=== PATIENT | female | born 1955 | race Hispanic/Latino ===

== ENCOUNTER → 2017-07-23 | Outpatient (CLI) | payer MEDICARE ==
[~2017-07-23] MED LIST: AEC81 PO; ASPI-1197 PO; BECLOMETHASONE PO; CHOL500050 PO; ISOS30TA6 PO; LINA145C PO; METF10004 PO; METF500T6 PO; MONT10TA24 PO; PANT40TA25 PO; PIOG30TA70 PO; PREG100C PO; PREG150C PO; PROAIR IH; RANO500T3 PO; REGADENOSON 0.4 MG/5 ML PF SYG IVP SCH; [UNRECOGNIZED DRUG - OTHER] PUFF
== END | disposition home or self-care (01) ==
LOC: SHCH 09:47
PROVIDERS: ATTEND Internal Medicine Cardiovascular Disease
DX: I20.9 Angina pectoris, unspecified (principal); R06.00 Dyspnea, unspecified; R51 Headache; R11.0 Nausea
CPT/HCPCS: 78452; 93017; 96374; A9500 ×2; J2785

== ENCOUNTER 2017-09-20 05:32 | Day surgery (SDC) | payer MEDICARE ==
[2017-09-16 11:49] VITALS: BP 116/56
[2017-09-16 12:02] LABS: BASOPHILS % (AUTO) 1.9 % (0.0-5.0); EOSINOPHILS % (AUTO) 8.1 % (0.0-8.0); HEMATOCRIT 32.7 % (36-48); LYMPHOCYTES % (AUTO) 21.6 % (21.0-51.0); MEAN CORPUSCULAR HEMOGLOBIN 28.2 pg (27.0-33.0); MEAN CORPUSCULAR HGB CONC 34.1 g/dL (32.0-36.0); MEAN CORPUSCULAR VOLUME 82.5 fL (79-99); MONOCYTES % (AUTO) 7.8 % (3.0-13.0); NEUTROPHILS % (AUTO) 60.6 % (40.0-77.0); NUCLEATED RED BLOOD CELLS 0.1 % (0.0-0.19); PLATELET COUNT (AUTO) 125 K/uL (130-400); RED BLOOD CELL COUNT(AUTO) 3.96 MIL/uL (4.00-5.50); RED CELL DISTRIBUTION WIDTH 15.1 % (11.0-15.5); WHITE BLOOD COUNT (AUTO) 4.3 K/uL (4.8-10.8)
[2017-09-16 12:03] LABS: APPEARANCE,URINE Cloudy (CLEAR); BILIRUBIN,URINE Negative (NEGATIVE); COLOR,URINE Dark Yellow (YELLOW); GLUCOSE, URINE (UA) Negative (NEGATIVE); KETONES,URINE 15 mg/dL (NEGATIVE); LEUKOCYTE ESTERASE ,URINE Negative (NEGATIVE); NITRATE,URINE Negative (NEGATIVE); OCCULT BLOOD,URINE Negative (NEGATIVE); PROTEIN,URINE POS 2+ (NEGATIVE)
[2017-09-16 12:08] LABS: POTASSIUM 4.6 mmol/L (3.5-5.1)
[2017-09-16 12:34] LABS: INR 0.99 (0.85-1.15); PARTIAL THROMBOPLASTIN TIME 28.2 SEC (26.3-35.5); PROTHROMBIN TIME 10.4 SEC (9.6-11.6)
[2017-09-16 12:37] LABS: BACTERIA,URINE Few /HPF (None Seen); MUCUS,URINE Rare LPF (None Seen); SQUAMOUS EPITHELIAL CELL,UR Rare /HPF (0-2); WBC,URINE 0-1 /HPF (0-1)
[~2017-09-20] VITALS: Ht 157.5 cm; Wt 69.0 kg
[2017-09-20] VITALS (9 sets, daily range): BP systolic 113–127; BP diastolic 49–58
[~2017-09-20 05:32] MED LIST changes: -AEC81 PO; -BECLOMETHASONE PO; -LINA145C PO; -METF500T6 PO; -PANT40TA25 PO; -PREG100C PO; -REGADENOSON 0.4 MG/5 ML PF SYG IVP SCH; -[UNRECOGNIZED DRUG - OTHER] PUFF
[2017-09-20] MEDS ORDERED: SODIUM CHLORIDE 0.9% 1000ML 1,000 ML IV ONE (06:29)
[2017-09-20] MEDS ORDERED: LINA145C PO (07:47)
[2017-09-20] MEDS ORDERED: [UNRECOGNIZED DRUG - OTHER] PUFF (07:47)
[2017-09-20] MEDS ORDERED: ISOVUE-370 50ML VIAL IV ONE (09:05)
[2017-09-20] MEDS ORDERED: NITROGLYCERIN 5 MG/ML 10 ML VIAL IV ONE (09:05)
[2017-09-20] MEDS ORDERED: HEPARIN SODIUM 1000UNIT/ML 10ML VIAL ONE (09:05)
[2017-09-20] MEDS ORDERED: IOPAMIDOL-370 75 ML VIAL IV ONE (09:05)
[2017-09-20] MEDS ORDERED: LIDOCAINE HCL 2% 20ML ONE (09:05)
[2017-09-20] MEDS ORDERED: MIDAZOLAM HCL 1 MG/ML 2ML VIAL ONE (09:37)
[2017-09-20] MEDS ORDERED: FENTANYL CITRATE PF 50 MCG/1 ML 2ML VIAL ONE (09:37)
[2017-09-20] MEDS ORDERED: SODIUM CHLORIDE 0.9% 1000ML 1,000 ML IV SCH (10:02)
[2017-09-20] MEDS ORDERED: HYDRALAZINE HCL 20 MG/ML VIAL IV PRN (10:15)
[2017-09-20] MEDS ORDERED: NITROGLYCERIN 0.4 MG SL TAB SL PRN (10:15)
[2017-09-20] MEDS ORDERED: GLUCAGON 1MG KIT 1 MG ML IM PRN (10:15)
[2017-09-20] MEDS ORDERED: DEXTROSE 50%-WATER 50 ML DISP.SYRIN IV PRN (10:15)
[2017-09-20] MEDS ORDERED: INSULIN HUMULIN R 100 UNIT/ML 3ML SQ SCH (11:30)
== END 2017-09-20 13:40 | disposition home or self-care (01) ==
LOC: DAH 05:32
PROVIDERS: ATTEND Internal Medicine Cardiovascular Disease
DX: I25.10 Atherosclerotic heart disease of native coronary artery without angina pectoris (principal); K21.9 Gastro-esophageal reflux disease without esophagitis; E11.40 Type 2 diabetes mellitus with diabetic neuropathy, unspecified; M19.90 Unspecified osteoarthritis, unspecified site; E78.5 Hyperlipidemia, unspecified; Z79.82 Long term (current) use of aspirin; Z79.84 Long term (current) use of oral hypoglycemic drugs; Z86.718 Personal history of other venous thrombosis and embolism; Z95.1 Presence of aortocoronary bypass graft; Z90.49 Acquired absence of other specified parts of digestive tract; Z90.710 Acquired absence of both cervix and uterus; Z98.890 Other specified postprocedural states; Z83.3 Family history of diabetes mellitus
CPT/HCPCS: 36415; 71045; 80048; 81001; 82948 ×2; 85025; 85610; 85730; 93005; 93459; 99156; 99157; A4606; C1760; C1894 ×2; J1644; J2250; J3010; J3490 ×2; J7030; Q9967 ×2

== ENCOUNTER → 2017-11-30 | Outpatient (CLI) | payer MEDICARE ==
[~2017-11-30] VITALS: Ht 157.5 cm; Wt 71.2 kg
[~2017-11-30] MED LIST changes: +AEC81 PO; +CEFAZOLIN SODIUM 1 GM VIAL IVP SCH; +CILO100T PO; +CLOP75TA32 PO; +LINA145C PO; +METF-446 PO; -METF10004 PO; +TYL3 PO; +[UNRECOGNIZED DRUG - OTHER] PUFF
[2017-11-30 11:05] VITALS: BP 133/62
[2017-11-30 11:13] LABS: BASOPHILS % (AUTO) 1.7 % (0.0-5.0); EOSINOPHILS % (AUTO) 6.9 % (0.0-8.0); HEMATOCRIT 32.6 % (36-48); LYMPHOCYTES % (AUTO) 23.6 % (21.0-51.0); MEAN CORPUSCULAR HEMOGLOBIN 27.5 pg (27.0-33.0); MEAN CORPUSCULAR HGB CONC 33.3 g/dL (32.0-36.0); MEAN CORPUSCULAR VOLUME 82.5 fL (79-99); MONOCYTES % (AUTO) 7.3 % (3.0-13.0); NEUTROPHILS % (AUTO) 60.5 % (40.0-77.0); PLATELET COUNT (AUTO) 101 K/uL (130-400); RED BLOOD CELL COUNT(AUTO) 3.95 MIL/uL (4.00-5.50); RED CELL DISTRIBUTION WIDTH 14.8 % (11.0-15.5); WHITE BLOOD COUNT (AUTO) 3.9 K/uL (4.8-10.8)
[2017-11-30 11:17] LABS: POTASSIUM 4.7 mmol/L (3.5-5.1)
[2017-11-30 11:49] LABS: INR 1.02 (0.85-1.15); PARTIAL THROMBOPLASTIN TIME 30.3 SEC (26.3-35.5); PROTHROMBIN TIME 10.7 SEC (9.6-11.6)
== END ==
LOC: DAH 10:00 → EDSTATUS 10:00
PROVIDERS: ATTEND Internal Medicine Cardiovascular Disease
DX: I49.5 Sick sinus syndrome (principal); Z53.9 Procedure and treatment not carried out, unspecified reason; Z95.1 Presence of aortocoronary bypass graft; Z90.49 Acquired absence of other specified parts of digestive tract; Z90.710 Acquired absence of both cervix and uterus; Z98.890 Other specified postprocedural states; Z82.49 Family history of ischemic heart disease and other diseases of the circulatory system; Z83.3 Family history of diabetes mellitus; D64.9 Anemia, unspecified; M19.90 Unspecified osteoarthritis, unspecified site; D69.6 Thrombocytopenia, unspecified; E11.40 Type 2 diabetes mellitus with diabetic neuropathy, unspecified; Z68.30 Body mass index [BMI] 30.0-30.9, adult; J44.9 Chronic obstructive pulmonary disease, unspecified; I25.119 Atherosclerotic heart disease of native coronary artery with unspecified angina pectoris
CPT/HCPCS: 36415; 80048; 85025; 85610; 85730

== ENCOUNTER 2017-12-17 05:37 | Observation (INO) | payer MEDICARE ==
[2017-12-15 10:30] VITALS: BP 137/64
[2017-12-15 10:33] LABS: BASOPHILS % (AUTO) 2.4 % (0.0-5.0); EOSINOPHILS % (AUTO) 6.8 % (0.0-8.0); HEMATOCRIT 31.4 % (36-48); LYMPHOCYTES % (AUTO) 27.1 % (21.0-51.0); MEAN CORPUSCULAR HEMOGLOBIN 27.9 pg (27.0-33.0); MEAN CORPUSCULAR HGB CONC 33.9 g/dL (32.0-36.0); MEAN CORPUSCULAR VOLUME 82.2 fL (79-99); MONOCYTES % (AUTO) 7.7 % (3.0-13.0); NUCLEATED RED BLOOD CELLS 0.1 % (0.0-0.19); PLATELET COUNT (AUTO) 111 K/uL (130-400); RED BLOOD CELL COUNT(AUTO) 3.83 MIL/uL (4.00-5.50); RED CELL DISTRIBUTION WIDTH 14.7 % (11.0-15.5); WHITE BLOOD COUNT (AUTO) 3.8 K/uL (4.8-10.8)
[2017-12-15 10:41] LABS: POTASSIUM 4.6 mmol/L (3.5-5.1)
[2017-12-15 10:45] LABS: INR 1.02 (0.85-1.15); PARTIAL THROMBOPLASTIN TIME 30.9 SEC (26.3-35.5); PROTHROMBIN TIME 10.7 SEC (9.6-11.6)
[~2017-12-17] VITALS: Ht 157.5 cm; Wt 67.2 kg
[2017-12-17] VITALS (19 sets, daily range): BP systolic 112–133; BP diastolic 46–79
[2017-12-17] MEDS: CEFAZOLIN SODIUM 1 GM VIAL IVP SCH ×2 (05:00→20:55)
[~2017-12-17 05:37] MED LIST changes: -ASPI-1197 PO; -CEFAZOLIN SODIUM 1 GM VIAL IVP SCH; -ISOS30TA6 PO; -PROAIR IH; -RANO500T3 PO; +SODIUM CHLORIDE 0.9% 500ML 500 ML IV SCH; -TYL3 PO; -[UNRECOGNIZED DRUG - OTHER] PUFF
[2017-12-17] MEDS ORDERED: SODIUM CHLORIDE 0.9% 1000ML 1,000 ML IV ONE (06:25)
[2017-12-17] MEDS ORDERED: BUPIVACAINE/PF 0.25% 30ML VIAL IJ ONE (07:21)
[2017-12-17] MEDS ORDERED: MIDAZOLAM HCL 1 MG/ML 2ML VIAL ONE ×2 (07:21→07:56)
[2017-12-17] MEDS ORDERED: MEPERIDINE-PF 25 MG/ML SYG ONE ×2 (07:21→07:56)
[2017-12-17] MEDS ORDERED: CEFAZOLIN SODIUM 1 GM VIAL ONE (07:22)
[2017-12-17] MEDS ORDERED: LIDOCAINE HCL 1% MDV 50ML VIAL ONE (07:22)
[2017-12-17] MEDS: METFORMIN HCL 500 MG TABLET PO SCH ×2 (09:00→21:00)
[2017-12-17] MEDS ORDERED: TEMAZEPAM 30 MG CAP PO PRN (09:00)
[2017-12-17] MEDS ORDERED: ONDANSETRON HCL 4 MG/2 ML VIAL IV PRN (09:00)
[2017-12-17] MEDS: PREGABALIN 75 MG CAPSULE PO SCH ×2 (09:00→20:59)
[2017-12-17] MEDS ORDERED: ACETAMINOPHEN 325 MG TAB PO PRN (09:00)
[2017-12-17] MEDS ORDERED: ACETAMINOPHEN-CODEINE 300/30MG TAB PO PRN (09:00)
[2017-12-17] MEDS: CLOPIDOGREL BISULFATE 75 MG TAB PO SCH (10:00)
[2017-12-17] MEDS: MONTELUKAST SODIUM 10 MG TAB PO SCH (10:00)
[2017-12-17] MEDS: PIOGLITAZONE HCL 30 MG TAB PO SCH (10:00)
[2017-12-17] MEDS: CILOSTAZOL 100 MG TAB PO SCH ×2 (10:00→20:59)
[2017-12-17] MEDS: ACETAMINOPHEN-CODEINE 300/30MG TAB PO PRN ×2 (15:18→23:51)
[2017-12-17] MEDS ORDERED: ASPIRIN 81 MG EC TAB PO SCH (21:00)
[2017-12-18 03:38] VITALS: BP 103/60
[2017-12-18] MEDS: CLOPIDOGREL BISULFATE 75 MG TAB PO SCH (07:23)
[2017-12-18] MEDS: PREGABALIN 75 MG CAPSULE PO SCH (07:23)
[2017-12-18] MEDS: METFORMIN HCL 500 MG TABLET PO SCH (07:23)
[2017-12-18] MEDS: MONTELUKAST SODIUM 10 MG TAB PO SCH (07:24)
[2017-12-18] MEDS: CILOSTAZOL 100 MG TAB PO SCH (07:24)
[2017-12-18] MEDS: PIOGLITAZONE HCL 30 MG TAB PO SCH (07:24)
[2017-12-18 07:54] VITALS: BP 113/55
[2017-12-18] MEDS ORDERED: LINZESS PO SCH (08:00)
[2017-12-18 11:36] VITALS: BP 112/57
[2017-12-18] MEDS ORDERED: TYL3 PO (13:01)
== END 2017-12-18 14:10 | disposition home or self-care (01) ==
LOC: DAH 05:37 → DAHIP 05:38 → DAH 05:38 → 2DH 13:32
PROVIDERS: ADMIT Internal Medicine Critical Care Medicine; ATTEND Internal Medicine Critical Care Medicine
DX: I49.5 Sick sinus syndrome (principal); E11.22 Type 2 diabetes mellitus with diabetic chronic kidney disease; I25.10 Atherosclerotic heart disease of native coronary artery without angina pectoris; I49.8 Other specified cardiac arrhythmias; N18.9 Chronic kidney disease, unspecified; Z90.710 Acquired absence of both cervix and uterus; Z95.0 Presence of cardiac pacemaker; Z95.1 Presence of aortocoronary bypass graft
CPT/HCPCS: 33208; 36415; 71045; 80048; 82948 ×3; 85025; 85610; 85730; 96374; A4606; C1785; C1898 ×2; G0378 ×33; J0690; J2175 ×2; J2250 ×2; J2405; J3490 ×2; J7030; 99156; 99157

== ENCOUNTER → 2019-07-31 | Outpatient (CLI) | payer OTHER, MEDICARE ==
[~2019-07-31] MED LIST changes: -MONT10TA24 PO; +MONT10TA26 PO; -SODIUM CHLORIDE 0.9% 500ML 500 ML IV SCH; +TYL3 PO
== END | disposition home or self-care (01) ==
LOC: SHCH 10:59
PROVIDERS: ATTEND Internal Medicine Cardiovascular Disease
DX: I70.0 Atherosclerosis of aorta (principal)
CPT/HCPCS: 93925

== ENCOUNTER → 2019-08-31 | Outpatient (CLI) | payer OTHER, MEDICARE | END | disposition home or self-care (01) | LOC: SHCH 09:57 | PROVIDERS: ATTEND Internal Medicine Cardiovascular Disease | DX: I87.2 Venous insufficiency (chronic) (peripheral) (principal) | CPT/HCPCS: 93970 ==

== ENCOUNTER → 2020-07-22 | Outpatient (CLI) | payer OTHER, MEDICARE ==
[~2020-07-22] MED LIST changes: -MONT10TA26 PO; +MONT10TA32 PO
== END | disposition home or self-care (01) ==
LOC: RAH 13:16
PROVIDERS: ATTEND Family Medicine
DX: I70.209 Unspecified atherosclerosis of native arteries of extremities, unspecified extremity (principal); I82.509 Chronic embolism and thrombosis of unspecified deep veins of unspecified lower extremity
CPT/HCPCS: 93925

== ENCOUNTER → 2020-09-05 | Outpatient (CLI) | payer OTHER, MEDICARE | END | disposition home or self-care (01) | LOC: RAH 07:47 | PROVIDERS: ATTEND Family Medicine | DX: I65.23 Occlusion and stenosis of bilateral carotid arteries (principal); R42 Dizziness and giddiness | CPT/HCPCS: 93880 ==

== ENCOUNTER → 2021-03-13 | Outpatient (CLI) | payer OTHER, MEDICARE ==
[~2021-03-13] MED LIST changes: +MONT-39 PO; -MONT10TA32 PO
== END | disposition home or self-care (01) ==
LOC: SHCH 08:29
PROVIDERS: ATTEND Internal Medicine Cardiovascular Disease
DX: R01.1 Cardiac murmur, unspecified (principal); E11.9 Type 2 diabetes mellitus without complications; E78.5 Hyperlipidemia, unspecified; E66.9 Obesity, unspecified; Z95.0 Presence of cardiac pacemaker; Z95.1 Presence of aortocoronary bypass graft
CPT/HCPCS: 93306; 93356

== ENCOUNTER → 2021-03-18 | Outpatient (CLI) | payer OTHER, MEDICARE ==
[~2021-03-18] VITALS: Ht 152.4 cm; Wt 78.0 kg
[2021-03-18] MEDS: REGADENOSON 0.4 MG/5 ML PF SYG IVP SCH (13:46)
== END | disposition home or self-care (01) ==
LOC: SHCH 07:54
PROVIDERS: ATTEND Internal Medicine Cardiovascular Disease
DX: I25.709 Atherosclerosis of coronary artery bypass graft(s), unspecified, with unspecified angina pectoris (principal)
CPT/HCPCS: 78452; 93017; 96374; A9500 ×2; J2785

== ENCOUNTER 2021-06-09 09:54 | Emergency (ER) | payer OTHER, MEDICARE ==
[2021-06-09 10:08] VITALS: BP 164/56
[2021-06-09 10:49] LABS: BASOPHILS % (AUTO) 0.9 % (0.0-5.0); EOSINOPHILS % (AUTO) 4.4 % (0.0-8.0); HEMATOCRIT 30.9 % (36-48); LYMPHOCYTES % (AUTO) 20.3 % (21.0-51.0); MEAN CORPUSCULAR HEMOGLOBIN 27.7 pg (27.0-33.0); MEAN CORPUSCULAR HGB CONC 32.7 g/dL (32.0-36.0); MEAN CORPUSCULAR VOLUME 84.9 fL (79-99); MONOCYTES % (AUTO) 8.1 % (3.0-13.0); NEUTROPHILS % (AUTO) 65.9 % (40.0-77.0); PLATELET COUNT (AUTO) 122 K/uL (130-400); RED BLOOD CELL COUNT(AUTO) 3.64 MIL/uL (4.00-5.50); RED CELL DISTRIBUTION WIDTH 15.2 % (11.0-15.5); WHITE BLOOD COUNT (AUTO) 5.7 K/uL (4.8-10.8)
[2021-06-09 11:05] LABS: CREATININE 1.1 mg/dL (0.5-1.5); POTASSIUM 4.1 mmol/L (3.5-5.1)
[2021-06-09 11:09] LABS: ALBUMIN 3.4 g/dL (3.5-5.0); BILIRUBIN,TOTAL 0.2 mg/dL (0.2-1.0); TOTAL PROTEIN, SERUM 6.3 g/dL (6.0-8.3)
[2021-06-09] MEDS ORDERED: ACET-66 PO (12:52)
== END 2021-06-09 13:04 | disposition home or self-care (01) ==
LOC: EDH 09:54
DX: S16.1XXA Strain of muscle, fascia and tendon at neck level, initial encounter (principal); E11.9 Type 2 diabetes mellitus without complications; E78.00 Pure hypercholesterolemia, unspecified; I10 Essential (primary) hypertension; Z79.82 Long term (current) use of aspirin; Z79.84 Long term (current) use of oral hypoglycemic drugs; Z79.899 Other long term (current) drug therapy; V49.49XA Driver injured in collision with other motor vehicles in traffic accident, initial encounter; Y93.89 Activity, other specified; Y92.89 Other specified places as the place of occurrence of the external cause; Y99.8 Other external cause status
CPT/HCPCS: 36415; 71045; 72040; 80053; 84484; 85025; 93005

== ENCOUNTER → 2022-01-29 | Outpatient (CLI) | payer OTHER, MEDICARE ==
[~2022-01-29] MED LIST changes: +ACET-66 PO; -CILO100T PO; +CILO100T3 PO
== END | disposition home or self-care (01) ==
LOC: SHCH 13:40
PROVIDERS: ATTEND Internal Medicine Cardiovascular Disease
DX: I70.203 Unspecified atherosclerosis of native arteries of extremities, bilateral legs (principal); I87.2 Venous insufficiency (chronic) (peripheral)
CPT/HCPCS: 93925; 93970

== ENCOUNTER → 2023-04-28 | Outpatient (CLI) | payer OTHER, MEDICARE | END | disposition home or self-care (01) | LOC: SHCH 12:32 | PROVIDERS: ATTEND Internal Medicine Cardiovascular Disease | DX: I87.2 Venous insufficiency (chronic) (peripheral) (principal); I73.9 Peripheral vascular disease, unspecified | CPT/HCPCS: 93925; 93970 ==

== ENCOUNTER → 2023-08-12 | Outpatient (CLI) | payer OTHER, MEDICARE ==
[~2023-08-12] MED LIST changes: +IOHEXOL 350 MG/ML 100ML INFUS..BTL IV ONE
== END | disposition home or self-care (01) ==
LOC: RAH 07:35
PROVIDERS: ATTEND Internal Medicine
DX: R10.33 Periumbilical pain (principal); M47.815 Spondylosis without myelopathy or radiculopathy, thoracolumbar region; I25.10 Atherosclerotic heart disease of native coronary artery without angina pectoris; Z90.49 Acquired absence of other specified parts of digestive tract; Z95.9 Presence of cardiac and vascular implant and graft, unspecified
CPT/HCPCS: 74178; Q9967

== ENCOUNTER → 2023-08-24 | Outpatient (CLI) | payer OTHER, MEDICARE ==
[~2023-08-24] MED LIST changes: -IOHEXOL 350 MG/ML 100ML INFUS..BTL IV ONE
[2023-08-24 12:17] LABS: BASOPHILS # (AUTO) 0.02 K/uL (0.00-0.20); BASOPHILS % (AUTO) 0.5 % (0.0-5.0); EOSINOPHILS # (AUTO) 0.12 K/uL (0.00-0.70); EOSINOPHILS % (AUTO) 2.9 % (0.0-8.0); HEMATOCRIT 36.2 % (36-48); IMMATURE GRANULOCYTE ABSOLUTE 0.01 K/uL (0-1); LYMPHOCYTES # (AUTO) 0.9 K/uL (1.0-4.8); LYMPHOCYTES % (AUTO) 22.5 % (21.0-51.0); MEAN CORPUSCULAR HEMOGLOBIN 27.5 pg (27.0-33.0); MEAN CORPUSCULAR HGB CONC 32.9 g/dL (32.0-36.0); MEAN CORPUSCULAR VOLUME 83.6 fL (79-99); MONOCYTES # (AUTO) 0.2 K/uL (0.1-1.0); MONOCYTES % (AUTO) 5.3 % (3.0-13.0); NEUTROPHILS # (AUTO) 2.8 K/uL (1.8-7.7); NEUTROPHILS % (AUTO) 68.6 % (40.0-77.0); PLATELET COUNT (AUTO) 164 K/uL (130-400); RED BLOOD CELL COUNT(AUTO) 4.33 MIL/uL (4.00-5.50); RED CELL DISTRIBUTION WIDTH 16.3 % (11.0-15.5); WHITE BLOOD COUNT (AUTO) 4.1 K/uL (4.8-10.8)
[2023-08-24 12:33] LABS: INR 0.95 (0.85-1.15); PROTHROMBIN TIME 11.3 SEC (9.6-11.6)
[2023-08-24 12:35] LABS: PARTIAL THROMBOPLASTIN TIME 28.2 SEC (26.3-35.5)
[2023-08-24 12:37] LABS: POTASSIUM 5.1 mmol/L (3.5-5.1)
== END | disposition home or self-care (01) ==
LOC: LAB 09:29
PROVIDERS: ATTEND Internal Medicine Cardiovascular Disease
DX: Z01.812 Encounter for preprocedural laboratory examination (principal); I87.1 Compression of vein; I87.2 Venous insufficiency (chronic) (peripheral); Z79.01 Long term (current) use of anticoagulants
CPT/HCPCS: 36415; 80048; 85025; 85610; 85730

== ENCOUNTER → 2024-02-07 | Outpatient (CLI) | payer OTHER, MEDICARE ==
[~2024-02-07] MED LIST changes: +IOHEXOL 350 MG/ML 100ML INFUS..BTL IV ONE
--- NOTE | 2024-02-07 09:33 | HMCIMG ---
CT ABDOMEN W/WO 3 PHASE HISTORY: Pancreatic protocol COMPARISON: 08/12/2023 TECHNIQUE: Multiple sequential axial images of the abdomen and pelvis were obtained from the dome of the diaphragm through symphysis pubis. Patient was given 100 cc of Omnipaque through intravenous route. Oral contrast was not given. Dynamic imaging technique was used. Pancreatic protocol was used. FINDINGS: No pleural effusion is seen bilaterally. There is no evidence of parenchymal disease or pulmonary nodule of the visualized lower lungs. Coronary arterial calcifications are seen. Degenerative changes of the thoracolumbar spine are present. The heart is not enlarged. Gallbladder has been removed. Common duct measures 7.6 mm. Liver measures 15 cm. Post gastric bypass surgical changes are seen. IVC filter is seen. No definite pancreatic mass is seen. The liver, spleen, adrenal glands and pancreas are unremarkable. There is no evidence of hydronephrosis bilaterally. No evidence of renal stone is seen. Fecal material is seen in the colon. There are normal size retroperitoneal and mesenteric lymph nodes. No ascites is seen. Atherosclerotic changes are present. Pelvic sidewalls are symmetric bilaterally. Bladder is well distended without wall thickening. IMPRESSION: 1. No definite CT evidence of pancreatic mass is seen. Clinical correlation is recommended. Post cholecystectomy without ductal dilatation. No ascites. CT was performed with one or more following dose reduction techniques: automated exposure control, adjustment of the mA and kv according to patient's size, or use of a iterative reconstruction technique.
== END | disposition home or self-care (01) ==
LOC: RAH 07:23
PROVIDERS: ATTEND Internal Medicine Gastroenterology
DX: R93.3 Abnormal findings on diagnostic imaging of other parts of digestive tract (principal); M47.815 Spondylosis without myelopathy or radiculopathy, thoracolumbar region; I25.10 Atherosclerotic heart disease of native coronary artery without angina pectoris; Z90.49 Acquired absence of other specified parts of digestive tract
CPT/HCPCS: 74170; Q9967

== ENCOUNTER → 2024-02-25 | Outpatient (CLI) | payer OTHER, MEDICARE ==
[~2024-02-25] MED LIST changes: -IOHEXOL 350 MG/ML 100ML INFUS..BTL IV ONE
--- NOTE | 2024-02-25 12:11 | HMCIMG ---
UPPER GI TRACT, WO KUB REASON: Periumbilical pain. COMPARISON: None TECHNIQUE: Gastrografin upper GI series was performed. FINDINGS: There is no obstruction to the antegrade passage of contrast from mild through jejunum. Post gastric bypass surgical changes are seen. A normal esophageal stripping wave is seen. There is mild distal esophageal reflux into the level of the thoracic esophagus. Duodenal bulb and duodenal sweep are unremarkable otherwise. IMPRESSION: Post surgical changes. Mild distal esophageal reflux to the level of mid thoracic esophagus. No obstruction is seen. No leakage is seen.
== END | disposition home or self-care (01) ==
LOC: RAH 09:30
PROVIDERS: ATTEND Internal Medicine
DX: K21.9 Gastro-esophageal reflux disease without esophagitis (principal)
CPT/HCPCS: 74240

== ENCOUNTER 2024-08-14 14:00 | Observation (INO) | payer OTHER, MEDICARE ==
[~2024-08-14] VITALS: Ht 152.4 cm; Wt 46.4 kg
[2024-08-14] VITALS: BP 116/74; PULSE 67; RESP 18; TEMP 98
--- NOTE | 2024-08-14 14:25 | ERN ---
General Chief Complaint: Shortness of Breath Stated Complaint: SOB Time Seen by MD: 14:06 History of Present Illness Initial Comments 69-year-old female brought in by EMS from her doctor's office ([facility]) for chest pains and shortness of breath. Patient has significant history of COPD, CABG x3, CHF EF 50%, IVC filter. She has had patient has had three days of dyspnea on exertion and difficulty lying flat. No fevers. She reports on and off chest pressures but none currently. Stable vital signs per EMS. She has Allergies: Coded Allergies: No Known Drug Allergies (Unverified Allergy, Unknown, 11/27/14) Home Meds Active Scripts Acetaminophen (Tylenol) 500 Mg Tab, 500 MG PO Q6HPRN for 5 Days, #30 TAB Prov:GALINA BERRY MD 06/09/21 Acetaminophen with Codeine (Tylenol with Codeine #3) 1 Tab Tab, 1-2 TAB PO Q6H PRN for PAIN LEVEL 5 TO 10, #30 TAB 0 Refills Prov:KENN ZAVALETA MD 12/18/17 Reported Medications Cilostazol (Cilostazol) 100 Mg Tablet, 100 MG PO BID, TAB 12/15/17 Clopidogrel Bisulfate (Clopidogrel) 75 Mg Tablet, 75 MG PO DAILY, TAB 12/15/17 Aspirin (ASPIRIN 81 MG ECTAB) 81 Mg Ectab, 81 MG PO HS, TAB.EC 11/30/17 Linaclotide (Linzess) 145 Mcg Capsule, 145 MCG PO DAILYBKFST, CAP 09/20/17 Cholecalciferol (Vitamin D3) (Vitamin D) 50,000 Unit Capsule, 42674 UNIT PO WEEKLY, CAP TUES 09/16/17 Montelukast Sodium (Montelukast Sodium) 10 Mg Tablet, 10 MG PO DAILY, TAB 09/16/17 Pregabalin (Lyrica) 150 Mg Capsule, 150 MG PO BID, CAP 09/16/17 Metformin HCl (Metformin HCl) 1,000 Mg Tablet, 1000 MG PO BID, TAB 09/16/17 Pioglitazone HCl (Pioglitazone HCl) 30 Mg Tablet, 30 MG PO AM, TAB 11/27/14 Past Medical History Past Medical History: Diabetes-Type II, High Cholesterol, Hypertension Past Surgical History: Unknown ROS Dictation CONSTITUTIONAL: No chills, no fever, no weakness, no diaphoresis, no malaise. HEAD/FACE: No signs of trauma. EENT: No eye pain, no blurred vision, no tearing, no double vision, no ear pain, no ear discharge, no nose pain, no nasal congestion, no throat pain, no throat swelling, no mouth pain. RESPIRATORY: Dyspnea CARDIOVASCULAR: No chest pain, no edema, no palpitations, no syncope. GASTROINTESTINAL/ABDOMINAL: No abdominal pain, no constipation, no diarrhea, no nausea, no vomiting. GENITOURINARY: No abnormal discharge, no dysuria, no frequent urination, no hematuria. No complaints of pain in the genitals. MUSCULOSKELETAL: No back pain, no gout, no joint pain, no joint swelling, no muscle pain, no muscle stiffness, no neck pain. INTEGUMENTARY: No change in color, no change in hair/nails, no dryness, no lesion, no lumps, no rash. NEUROLOGICAL/PSYCH: No anxiety, not depressed, no emotional problem, no headache, no numbness, no pre-existing deficit, no history of seizures, no tremors, no weakness. HEMATOLOGIC/LYMPHATIC: Not anemic, no history of blood clots, no apparent bleeding, no bruising, glands not swollen. All Systems Negative, Except as Noted. Physical Exam Physical Exam Dictation VITAL SIGNS: Reviewed. GENERAL APPEARANCE: Alert, oriented x3, no acute distress HEAD AND FACE: Non-traumatic. EYES: PERRL, pink conjunctivas, eyelid no trauma, anterior chamber clear. EARS: Pinnas intact and no signs of trauma or erythema. Ear canals clear and no discharge. TMs no erythema. NOSE: No discharge, no bleeding. OROPHARYNX: Mouth normal, teeth no caries, tongue pink. Pharynx clear, no erythema. Tonsils no exudates, no abscesses noted. Mucous membrane moist. NECK: Supple, non-tender, no thyromegaly, no masses, no JVD, no bruits. BREAST: Deferred. CHEST: No tenderness, no crepitus, no paradoxical movement, no retractions. LUNGS: Clear, well-ventilated, symmetric, no rales, no wheezing, no rhonchi, no stridor, mild crackles in the bases. HEART: Regular rate, regular rhythm, no murmur, no gallops. VASCULAR: No peripheral edema. ABDOMEN: Soft, positive bowel sounds, nondistended, no guarding, nontender, no rebound, no masses no hepatomegaly, no splenomegaly, no Sewell's sign, no hernias. RECTAL: Deferred. GENITAL: Deferred. NEUROLOGICAL: Normal speech, gross motor function intact, gross sensory function intact. MUSCULOSKELETAL: Neck nontender, full range of motion, back nontender, full range of motion. EXTREMITIES: Nontender, full range of motion. SKIN: Color pink, dry, no turgor, no rash, no lacerations, no abrasions, no contusions. LYMPHATICS: Deferred. Results Laboratory and Microbiology Lab and Micro Result Laboratory Tests Test 08/14/24 14:07 08/14/24 14:28 08/14/24 14:30 Whole Blood Glucose 81 MG/DL (70-110) White Blood Count 5.6 K/uL (4.8-10.8) Red Blood Count 5.02 MIL/uL (4.00-5.50) Hemoglobin 13.7 g/dL (12.0-16.0) Hematocrit 41.4 % (36-48) Mean Corpuscular Volume 82.5 fL (79-99) Mean Corpuscular Hemoglobin 27.3 pg (27.0-33.0) Mean Corpuscular Hemoglobin Concent 33.1 g/dL (32.0-36.0) Red Cell Distribution Width 14.9 % (11.0-15.5) Platelet Count 193 K/uL (130-400) Mean Platelet Volume 10.5 fL (7.5-10.5) Immature Granulocyte % (Auto) 0.2 % (0-1) Neutrophils (%) (Auto) 64.3 % (40.0-77.0) Lymphocytes (%) (Auto) 24.0 % (21.0-51.0) Monocytes (%) (Auto) 7.3 % (3.0-13.0) Eosinophils (%) (Auto) 2.9 % (0.0-8.0) Basophils (%) (Auto) 1.3 % (0.0-5.0) Neutrophils # (Auto) 3.6 K/uL (1.8-7.7) Lymphocytes # (Auto) 1.3 K/uL (1.0-4.8) Monocytes # (Auto) 0.4 K/uL (0.1-1.0) Eosinophils # (Auto) 0.16 K/uL (0.00-0.70) Basophils # (Auto) 0.07 K/uL (0.00-0.20) Absolute Immature Granulocyte (auto 0.01 K/uL (0-1) Nucleated Red Blood Cells 0.0 % (0.0-0.19) Prothrombin Time 11.2 SEC (9.6-11.6) Prothromb Time International Ratio 1.06 (0.85-1.15) Activated Partial Thromboplast Time 28.8 SEC (26.3-35.5) Sodium Level 141 mmol/L (136-145) Potassium Level 3.9 mmol/L (3.5-5.1) Chloride Level 106 mmol/L (101-111) Carbon Dioxide Level 26 mmol/L (21-32) Blood Urea Nitrogen 18 mg/dL (7-18) Creatinine 1.0 mg/dL (0.5-1.0) Glomerular Filtration Rate Calc 60 mL/min (>90) Random Glucose 86 mg/dL (70-105) Total Calcium 9.2 mg/dL (8.5-10.1) Magnesium Level 1.90 mg/dL (1.80-2.40) Total Creatine Kinase 86 U/L (21-232) Troponin I High Sensitivity 6 ng/L (4-50) B-Type Natriuretic Peptide 115 pg/mL (0-100) H SARS-CoV-2 Antigen (Rapid) PRESUMPTIVE NEGATIVE MDM CC: Dyspnea x3 days Historian: Patient Comorbidities: COPD, pacemaker, CABG x3, CHF, IVC filter Limitations by social determinants of health: None Differential diagnosis: Fluid overload, CHF exacerbation, ACS, COPD exacerbation, other. Vital signs: Stable, remained stable here in the ER. Oxygen saturation 99% on room air. Clinically patient is minimally fluid overloaded, lungs, no pedal edema. EKG: Atrial paced rhythm rate of 63 normal axis good R-wave progression intervals are stable no STEMI. Independently interpreted by me Chest x-ray shows no cardiomegaly or pleural effusions or focal infiltrates per my independent interpretation. Labs show normal CBC, metabolic panel is unremarkable, troponin normal, coags normal Treatment in ED: Duo nebs Plan: Admission for cardiac workup. ED Course Orders Procedure Category Date Status Time Cbc With Differential LAB 08/14/24 Complete 14:06 Prothrombin Time With LAB 08/14/24 Complete INR 14:06 B-Type Natriuretic LAB 08/14/24 Complete Peptide 14:06 Chest 1vw RAD 08/14/24 Resulted 14:06 12 Lead Ekg Tracing- EKG 08/14/24 Logged Technical 14:06 Magnesium LAB 08/14/24 Complete 14:06 Creatine Kinase, Total LAB 08/14/24 Complete 14:06 Troponin I High LAB 08/14/24 Complete Sensitivity 14:06 Partial LAB 08/14/24 Complete Thromboplastin Time 14:06 Basic Metabolic Panel LAB 08/14/24 Complete 14:06 Ipratropium/Albuterol PHA 08/14/24 Complete Neb (Duoneb) 14:30 Covid19 (Sars Antigen LAB 08/14/24 Complete Rapid) 14:06 Current Medications Medications (Trade) Dose Ordered Sig/Juan Route PRN Reason Start Time Stop Time Status Last Admin Dose Admin Albuterol (DUOneb) 1 UDVIAL ONCE ONCE IH 08/14/24 14:30 08/14/24 14:31 DC 08/14/24 14:34 Vital Signs Date Time Temp Pulse Resp B/P (MAP) Pulse Ox O2 Delivery O2 Flow Rate FiO2 08/14/24 14:35 69 18 08/14/24 14:02 98.1 63 16 153/80 98 0 08/14/24 14:02 98.1 63 16 153/80 98 Room Air* 0 21 DX & DISP Disposition: Inpatient Departure Impression: Primary Impression: Chest pain with high risk for cardiac etiology Additional Impression: COPD exacerbation Condition: Stable Referrals: ELINOR BOYER M.D. (PCP) PIPO HONG DO August 14, 2024 14:25
[2024-08-14] MEDS: IpraTROPium/alBUTERol SULFATE 3 ML SOLUTION IH ONE (14:34)
[2024-08-14 14:35] VITALS: PULSE 69; RESP 18
[2024-08-14 14:45] LABS: BASOPHILS # (AUTO) 0.07 K/uL (0.00-0.20); BASOPHILS % (AUTO) 1.3 % (0.0-5.0); EOSINOPHILS # (AUTO) 0.16 K/uL (0.00-0.70); EOSINOPHILS % (AUTO) 2.9 % (0.0-8.0); HEMATOCRIT 41.4 % (36-48); IMMATURE GRANULOCYTE ABSOLUTE 0.01 K/uL (0-1); LYMPHOCYTES # (AUTO) 1.3 K/uL (1.0-4.8); MEAN CORPUSCULAR HEMOGLOBIN 27.3 pg (27.0-33.0); MEAN CORPUSCULAR HGB CONC 33.1 g/dL (32.0-36.0); MEAN CORPUSCULAR VOLUME 82.5 fL (79-99); MONOCYTES # (AUTO) 0.4 K/uL (0.1-1.0); MONOCYTES % (AUTO) 7.3 % (3.0-13.0); NEUTROPHILS # (AUTO) 3.6 K/uL (1.8-7.7); NEUTROPHILS % (AUTO) 64.3 % (40.0-77.0); PLATELET COUNT (AUTO) 193 K/uL (130-400); RED BLOOD CELL COUNT(AUTO) 5.02 MIL/uL (4.00-5.50); RED CELL DISTRIBUTION WIDTH 14.9 % (11.0-15.5); WHITE BLOOD COUNT (AUTO) 5.6 K/uL (4.8-10.8)
[2024-08-14 14:59] LABS: POTASSIUM 3.9 mmol/L (3.5-5.1)
[2024-08-14 15:01] LABS: INR 1.06 (0.85-1.15); PROTHROMBIN TIME 11.2 SEC (9.6-11.6)
[2024-08-14 15:02] LABS: PARTIAL THROMBOPLASTIN TIME 28.8 SEC (26.3-35.5)
--- NOTE | 2024-08-14 15:02 | HMCIMG ---
Exam Type: CHEST 1VW Clinical Information: cough Comparison: None Findings: Left cardiac pacemaker is noted with leads in place. There is status post median sternotomy. The lungs are clear of infiltrates. The heart is normal in size. Impression: Clear lungs.
[2024-08-14 15:03] LABS: MAGNESIUM 1.9 mg/dL (1.80-2.40)
[2024-08-14 15:47] LABS: B-TYPE NATRIURETIC PEPTIDE 115 pg/mL (0-100)
[2024-08-14] MEDS ORDERED: acetaMINOPHEN 650 MG SUPPOSITORY RC PRN (17:00)
[2024-08-14] MEDS ORDERED: acetaMINOPHEN 325 MG TAB PO PRN (17:00)
--- NOTE | 2024-08-14 19:11 | NUR ---
ASSUMED CARE OF PT. PT IS A&OX4 NO DISTRESS NOTED. PER PT WAS HAVING CP THAT WOULD COME AND GO WORST TODAY PER PT WAS TOLD BY PROVIDER TO COME TO ER FOR CP AND WORSTENING SOB. AT THIS TIME PT IS ADMITTED PENDING ROOM ASSIGNMENT AT THIS TIME.
[2024-08-14 19:36] LABS: APPEARANCE,URINE CLEAR (CLEAR); BILIRUBIN,URINE NEGATIVE (NEGATIVE); COLOR,URINE COLORLESS (YELLOW); GLUCOSE, URINE (UA) 500 mg/dL (NEGATIVE); KETONES,URINE NEGATIVE (NEGATIVE); LEUKOCYTE ESTERASE ,URINE NEGATIVE Leu/uL (NEGATIVE); NITRATE,URINE NEGATIVE (NEGATIVE); OCCULT BLOOD,URINE NEGATIVE (NEGATIVE); PROTEIN,URINE NEGATIVE (NEGATIVE); UROBILINOGEN,URINE 0.2 mg/dL (0.2-1.0)
[2024-08-14 19:42] LABS: ADD UA MICROSCOPIC YES
[2024-08-14 19:44] LABS: MUCUS,URINE RARE LPF (None Seen); WBC,URINE 0-1 /HPF (0-1)
--- NOTE | 2024-08-14 19:55 | HP ---
[facility] HISTORY & PHYSICAL Date Patient Seen: August 14, 2024 Time of Visit: 19:55 Supervising Physician: Dr. Davey Caballero Primary Care Physician: ELINOR BOYER M.D. (PCP) Outpatient Specialists: Inpatient Consults: PROBLEM LIST: Chest pain with high risk cardiac etiology, negative troponin x3 COPD exacerbation, POA Elevated D-dimer, rule out PE/DVT Acute on chronic kidney disease, GFR 60 Elevated BNP 115 Diabetes mellitus with hyperglycemia Hypertension Hypercholesteremia CABG x3 EF 50% IV filter HPI: Ms. Tipton is a 69-year-old female with a history of COPD, CHF, EF 50%, CABG x3, IVC filter who presented to [facility] ED via EMS from her doctor's office ([facility]) for evaluation of chest pains and shortness of breath. The patient reported three days of dyspnea on exertion and difficulty lying flat. She reported on and off chest pressures but currently none. The patient denied fever, any other pain, problem or concern. The patient's influenza COVID was negative. Cardiac markers negative X4. BNP 115. D-dimer 734. Chest x-ray: Clear lungs. I assess the patient at bedside. The patient appeared weak, but comfortable in no distress. Patient's breathing was even, unlabored. I informed the patient of labs, diagnostics, and plan of care. She verbalized understanding and is in agreement with the plan. Plan and assessment are listed below. PAST MEDICAL HX: see above PAST SURGICAL HX: CABG x3, pacemaker, cholecystectomy, hysterectomy, IVC filter placement SOCIAL HISTORY: No tobacco, ETOH, or illicit drug use Coded Allergies: No Known Drug Allergies (Unverified Allergy, Unknown, 11/27/14) REVIEW OF SYSTEMS: 12 point ROS reviewed with patient. Pertinent positives mentioned above. Otherwise negative. PHYSICAL EXAM: GENERAL: Alert, weak, awake oriented x 3. HEENT: EOMI, Sclera non icteric, moist mucosa NECK: Supple, no JVD, trachea midline LUNGS: Clear breath sounds bilaterally. No wheezes HEART: Regular rate and rhythm. Normal S1 and S2, without murmurs ABD: Abdomen soft, nontender. Bowel sounds present EXT: No clubbing cyanosis or edema NEURO: Alert and oriented x3, follows commands Vital Signs (last 8hr) Date Time Temp Pulse Resp B/P (MAP) Pulse Ox O2 Delivery O2 Flow Rate FiO2 5/12/25 19:18 70 20 137/62 99 Room Air* 0 21 08/14/24 19:00 68 16 62/79 98 Room Air* 0 21 08/14/24 17:00 62 16 139/79 98 Room Air* 0 21 08/14/24 16:00 63 16 141/77 98 Room Air* 0 21 08/14/24 15:00 98.1 62 16 146/69 98 Room Air* 0 21 08/14/24 14:35 69 18 08/14/24 14:02 98.1 63 16 153/80 98 0 08/14/24 14:02 98.1 63 16 153/80 98 Room Air* 0 21 LABS: Hematology Labs: Test 08/14/24 14:28 Range/Units White Blood Count 5.6 4.8-10.8 K/uL Red Blood Count 5.02 4.00-5.50 MIL/uL Hemoglobin 13.7 12.0-16.0 g/dL Hematocrit 41.4 36-48 % Mean Corpuscular Volume 82.5 79-99 fL Mean Corpuscular Hemoglobin 27.3 27.0-33.0 pg Mean Corpuscular Hemoglobin Concent 33.1 32.0-36.0 g/dL Red Cell Distribution Width 14.9 11.0-15.5 % Platelet Count 193 130-400 K/uL Mean Platelet Volume 10.5 7.5-10.5 fL Immature Granulocyte % (Auto) 0.2 0-1 % Neutrophils (%) (Auto) 64.3 40.0-77.0 % Lymphocytes (%) (Auto) 24.0 21.0-51.0 % Monocytes (%) (Auto) 7.3 3.0-13.0 % Eosinophils (%) (Auto) 2.9 0.0-8.0 % Basophils (%) (Auto) 1.3 0.0-5.0 % Neutrophils # (Auto) 3.6 1.8-7.7 K/uL Lymphocytes # (Auto) 1.3 1.0-4.8 K/uL Monocytes # (Auto) 0.4 0.1-1.0 K/uL Eosinophils # (Auto) 0.16 0.00-0.70 K/uL Basophils # (Auto) 0.07 0.00-0.20 K/uL Absolute Immature Granulocyte (auto 0.01 0-1 K/uL Nucleated Red Blood Cells 0.0 0.0-0.19 % Chemistry Labs: Test 08/14/24 17:24 08/14/24 14:28 08/14/24 14:07 Range/Units Total Creatine Kinase 114 # 21-232 U/L Troponin I High Sensitivity 5.2 4-50 ng/L Sodium Level 141 136-145 mmol/L Potassium Level 3.9 3.5-5.1 mmol/L Chloride Level 106 101-111 mmol/L Carbon Dioxide Level 26 21-32 mmol/L Blood Urea Nitrogen 18 7-18 mg/dL Creatinine 1.0 0.5-1.0 mg/dL Glomerular Filtration Rate Calc 60 >90 mL/min Random Glucose 86 70-105 mg/dL Total Calcium 9.2 8.5-10.1 mg/dL Magnesium Level 1.90 1.80-2.40 mg/dL B-Type Natriuretic Peptide 115 H 0-100 pg/mL Whole Blood Glucose 81 70-110 MG/DL Coagulation Labs: Test 08/14/24 14:28 Range/Units Prothrombin Time 11.2 9.6-11.6 SEC Prothromb Time International Ratio 1.06 0.85-1.15 Activated Partial Thromboplast Time 28.8 26.3-35.5 SEC DIAGNOSTICS / RADIOLOGY RESULTS: [ ] PLAN Admit to medical floor with telemetry monitoring. Troponin and EKGs series. 2D echo in the morning. CT chest PE protocol. P.r.n. medications for: Pain management, fever, nausea, vomiting, constipation, hypertension. Oxygen supplementation as needed to keep SpO2 equal to greater than 92%. Nitroglycerin as needed for chest pain. Plavix 7 mg p.o. daily. Atorvastatin 40 mg p.o. daily. Strict I&Os. Fluid restrictions a 1200 mL in24 hours. Atrovent nebulizer treatment every 6 hours. Albuterol every 4 hours as needed for shortness of breath. Blood pressure checks every4 hours and as needed. Reconcile home medications once available. Glucometer checks a.c. and HS with insulin regular sliding scale coverage as needed. Monitor renal and liver function. Monitor electrolytes and treat accordingly. A.m. labs. DVT and GI prophylaxis. NEURO: Minimize central acting medications as possible. Maintain fall precautions, adequate lighting during the day PULMONARY: Supplemental 02 as needed. Maintain aspiration precautions at all times CARDIOVASCULAR: Follow hemodynamics. Vital signs per facility protocol GI & NUTRITION: Continue with nutritional support. Continue stool softeners and laxatives as needed. KIDNEYS & ELECTROLYTES: Strict monitoring of intake, output and overall fluid balance. Avoid nephrotoxic medications to the extent possible. Medications to be dosed according to renal function. Monitor electrolytes and replace as needed ENDOCRINE: Maintain blood glucose between 100-180 at all times. Hypoglycemia protocol in place INFECTIOUS DISEASE: Trend temperature, WBC and procalcitonin level Follow cultures, deescalate antibiotics as soon as possible. Panculture if new onset fever ONCOLOGY/HEMATOLOGY/COAGULATION: Monitor for s/s of bleeding Monitor hemoglobin, coagulation studies as needed SKIN: Pressure ulcer prevention per facility protocol Specialty mattress ORTHO/REHAB: Continue PT/OT Prophylaxis: Continue GI and DVT prophylaxis Code Status: Full Resuscitation Disposition: JENNA HOWELL August 14, 2024 19:55
[2024-08-14 21:44] LABS: INFLUENZA TYPE A Negative For Type A (NEGATIVE); INFLUENZA TYPE B Negative For Type B (NEGATIVE)
[2024-08-14 22:15] VITALS: BP 137/63; PULSE 68; RESP 18; TEMP 97.9
--- NOTE | 2024-08-14 22:15 | NUR ---
Pt. received aaox3 via stretcher from E.R., transferred to bed, made comfortable,pt. tolerated well, oriented to rm./surroundings, instructed on use of call-light, verbalized understanding, rails up x2, call-light within easy reach; no c/o voiced out @ this time.
[2024-08-15 04:00] VITALS: BP 125/77; PULSE 68; RESP 18; TEMP 98.4
[2024-08-15 04:27] LABS: BASOPHILS # (AUTO) 0.07 K/uL (0.00-0.20); BASOPHILS % (AUTO) 1.3 % (0.0-5.0); EOSINOPHILS # (AUTO) 0.17 K/uL (0.00-0.70); EOSINOPHILS % (AUTO) 3.1 % (0.0-8.0); HEMATOCRIT 37.9 % (36-48); IMMATURE GRANULOCYTE ABSOLUTE 0.02 K/uL (0-1); LYMPHOCYTES # (AUTO) 1.6 K/uL (1.0-4.8); LYMPHOCYTES % (AUTO) 29.2 % (21.0-51.0); MEAN CORPUSCULAR HEMOGLOBIN 27.2 pg (27.0-33.0); MEAN CORPUSCULAR HGB CONC 33.2 g/dL (32.0-36.0); MEAN CORPUSCULAR VOLUME 81.9 fL (79-99); MONOCYTES # (AUTO) 0.5 K/uL (0.1-1.0); MONOCYTES % (AUTO) 8.3 % (3.0-13.0); NEUTROPHILS # (AUTO) 3.2 K/uL (1.8-7.7); NEUTROPHILS % (AUTO) 57.7 % (40.0-77.0); PLATELET COUNT (AUTO) 166 K/uL (130-400); RED BLOOD CELL COUNT(AUTO) 4.63 MIL/uL (4.00-5.50); RED CELL DISTRIBUTION WIDTH 14.9 % (11.0-15.5); WHITE BLOOD COUNT (AUTO) 5.5 K/uL (4.8-10.8)
[2024-08-15 04:49] LABS: CREATININE 0.9 mg/dL (0.5-1.0); PHOSPHORUS 4.8 mg/dL (2.5-4.9); POTASSIUM 4.1 mmol/L (3.5-5.1)
--- NOTE | 2024-08-15 06:36 | EKG ---
[facility] Test Date: 2024-08-14 Test Time: 14:24:56 Pat Name: LEONCIO AGUILAR Department: [facility] Room: 404 1 Gender: F Rn Maternity: [id number] Requested By: PIPO HONG Order Number: [id number] Reading MD: Jin Weston Measurements Intervals [place] Rate: 63 P: 0 WA: 175 QRS: 66 QRSD: 87 T: 29 QT: 423 QTc: 433 Interpretive Statements Atrial-paced rhythm Compared to ECG 06/09/2021 10:43:15 No significant changes Electronically Signed On 08-15-2024 16:18:02 CDT by Jin Weston Please click the below link to view image of tracing.
[2024-08-15] MEDS: INSULIN humuLIN R 100 UNIT/ML 3ML SQ SCH (06:43)
--- NOTE | 2024-08-15 06:54 | NUR ---
kevin Gomez is busy and will have her call back
--- NOTE | 2024-08-15 06:56 | NUR ---
per RN Patricia unable to bring pt to CT and will let day shift know there is a pending CT
[2024-08-15] MEDS ORDERED: ALBUTEROL 0.083% 2.5 MG/3 ML INH IH PRN (07:00)
[2024-08-15] MEDS ORDERED: doCUSate SODIUM 100 MG CAP PO PRN (07:00)
[2024-08-15] MEDS: IpraTROPium 0.5 MG/2.5 ML INH IH SCH (07:00)
[2024-08-15] MEDS ORDERED: acetaMINOPHEN 650 MG SUPPOSITORY RC PRN (07:00)
[2024-08-15] MEDS ORDERED: LAbetaLOL 20MG SYG IV PRN (07:00)
[2024-08-15] MEDS ORDERED: LACTULOSE 20 GM/30 ML UDCUP PO PRN (07:00)
[2024-08-15] MEDS ORDERED: TEMAZepam 15 MG CAPSULE PO PRN (07:00)
[2024-08-15] MEDS ORDERED: ondanSETRON 4MG INJ IVP PRN (07:00)
[2024-08-15] MEDS ORDERED: acetaMINOPHEN 325 MG TAB PO PRN (07:00)
[2024-08-15 07:33] LABS: ALBUMIN 3.4 g/dL (3.5-5.0); BILIRUBIN,DIRECT 0.1 mg/dL (0.0-0.3); BILIRUBIN,TOTAL 0.4 mg/dL (0.2-1.0); THYROID STIMULATING HORMONE 1.73 uIU/mL (0.36-3.74); TOTAL PROTEIN, SERUM 6.4 g/dL (6.0-8.3)
[2024-08-15 07:44] LABS: HEMOGLOBIN A1C 7.1 % (4.0-6.0)
[2024-08-15 08:00] VITALS: BP 130/87; PULSE 77; RESP 20; TEMP 98; O2SAT 98
[2024-08-15] MEDS: FAMOTIDINE 20MG TAB PO SCH (09:08)
[2024-08-15] MEDS: cloPIDOgrel 75MG TAB PO SCH (09:08)
--- NOTE | 2024-08-15 09:41 | NUR ---
PER [facility] PATIENT HAS A [employer] PACEMAKER . [employer] WAS CALLED . PAGING LOCAL REP FOR INTEGRATION. PENDING CALL BACK.
[2024-08-15] MEDS ORDERED: IOHEXOL-350 75 ML VIAL IV ONE (11:15)
--- NOTE | 2024-08-15 11:41 | HMCIMG ---
CT angiogram chest CLINICAL INDICATION: elevated DDIMER COMPARISON: None. CT Dose Index (CTDI): 113.50 mGy Dose Length Product (DLP): 1408.10 total mGy PROTOCOL: Contrast: 100 cc of Isovue-370, injected IV, no complications Examination is done at 2.5 millimeter volumetric acquisition after contrast administration. Photography is done at 5 millimeter thick intervals for the thorax. FINDINGS: There is no evidence of pulmonary embolism. The airway is intact. The trachea and major bronchi are unremarkable. No pulmonary infiltrates or mass lesions are seen. No pleural effusions are identified. The exam of the adelfo and mediastinum is unremarkable. No evidence of hilar enlargement is seen. The aorta shows no aneurysmal dilatation or significant atheromatous calcification. There is no thoracic aortic dissection. No significant brachiocephalic vascular abnormalities are seen. The heart is enlarged. There is status post CABG and median sternotomy. Significant calcifications of the tribe coronary arteries is identified. There is no pericardial effusion. Left cardiac pacemaker is noted with leads in place. The rib cage appears unremarkable. The soft tissues of the chest wall are unremarkable. The dorsal spine shows no significant abnormalities. Limited evaluation of the upper abdomen demonstrates no gross abnormalities. IMPRESSION: No evidence of pulmonary embolism. Clear lungs. This study was performed using dose reduction techniques to include automated exposure control and/or adjustment of the mA and/or kV according to patient size.
[2024-08-15 12:00] VITALS: BP 127/71; PULSE 74; RESP 20; TEMP 98.1
[2024-08-15] MEDS ORDERED: IpraTROPium 0.5 MG/2.5 ML INH IH SCH (12:00)
--- NOTE | 2024-08-15 12:33 | HMCIMG ---
Exam Type: US VENOUS DOPPLER BILATERAL Clinical Information: Elevated DDIMER Comparison: None Findings: The examination shows normal deep venous system. There is normal compressibility at all levels. There is no intraluminal clot. There is no occlusion. Adequate response is obtained on augmentation. Impression: No evidence of DVT.
[2024-08-15 14:07] VITALS: PULSE 67; RESP 17
--- NOTE | 2024-08-15 14:09 | NUR ---
DCP: HOME Pt currently lives alone in her home. Pt has a cane, walker, and nebulizer that she uses while she is at home. Pt has 4 hrs daily of provider services via [employer]. Pt states that provider assists with bathing, housekeeping, and meals. PCP is Dr. Deepika Reid and uses [facility] for any RX needs. At [place] pt will return [place] and family can assist with transportation. Addendum: 08/15/24 at 1411 by RAPHAEL AVILEZ SS Amended: Links added.
[2024-08-15 14:14] VITALS: BP 127/71; PULSE 74; RESP 20; TEMP 98.1
[2024-08-15] MEDS ORDERED: PRED10TA23 PO (14:16)
--- NOTE | 2024-08-15 16:06 | HMCSR ---
APPROVED REPORT EXAM: Two-dimensional and M-mode echocardiogram with Doppler and color Doppler. INDICATION ICD: Chest Pain 2D Dimensions RVDd3.7 cmLVEF(%)71.9 (>50%)LVED Vol(simp.)31.0 mL IVSd0.7 (0.7-1.1cm)FS(%)40 %LVES Vol(simp.)11.0 mL LVDd3.8 (3.8-5.6cm)LA (2D)2.9 (1.6-4.0cm)LVEF(%, simp.)63 % PWd0.7 (0.7-1.1cm)Ao Root(2D)2.6 (2.0-3.7cm)LA ESV INDEX (BP)16.09 mL/m2 LVDs2.2 (2.5-4.0cm)LVOT diam1.8 (1.8-2.4cm) IVC diam1.5 cm Deformation Strain Apical 4-20.0 % Apical 2-16.8 % Apical 3-17.9 % Global Strain-18.2 % M-Mode Dimensions EPSS0.2 cm LA (MM)2.2 (1.6-4.0cm) Ao Root(MM)2.3 (2.0-3.7cm) Aortic Valve AoV Vmax1.1 m/Zahira Peak GR4.8 mmHgLVOT Vmax0.9 m/s AoV VTI0.3 mAo Mean GR2.8 mmHgLVOT VTI0.23 m HUNTER (VMAX)2.30 cm2AVA (VTI) 2.3 cm2 Mitral Valve MV E Vmax46.8 cm/sDECEL Uutm519 ms MV A Vmax65.4 cm/sP 1/2 T89 ms E/A ratio0.7MVA (PHT)2.5 cm2 TDI E/E' Medial6.6E/E' Lateral5.0 Medial E' Peak V7.07 cm/sLateral E' Peak V9.37 cm/s Pulmonary Valve PV Vmax0.8 m/sPV VTI0.20 mPV Mean GR1.6 mmHg PV Peak GR2.8 mmHg Tricuspid Valve TR Vmax2.4 m/sRVSP23.1 mmHg TR Peak GR23.3 mmHg Left Ventricle The left ventricle is normal size. There is normal LV segmental wall motion. Normal global strain shikha ue at -18.2% There is normal left ventricular wall thickness. LVEF is 60-65%. The left ventricular di astolic function is normal. Right Ventricle The right ventricle is normal size. The right ventricular systolic function is normal. RV pacer lead noted Atria The left atrium size is normal. The right atrium size is normal. Pacemaker lead is present in the rig ht atrium. Aortic Valve The aortic valve is normal in structure. No aortic regurgitation is present. There is no aortic valvu lar stenosis. Mitral Valve The mitral valve is normal in structure. There is no mitral valve regurgitation noted. There is no mi tral valve stenosis. Tricuspid Valve The tricuspid valve is normal in structure. There is mild tricuspid valve regurgitation noted. Pulmonic Valve The pulmonary valve is normal in structure. There is no pulmonic valvular regurgitation. Great Vessels The aortic root is normal in size. The IVC is normal in size and collapses >50% with inspiration. Pericardium There is no pericardial effusion. Conclusion LVEF is 60-65%. There is normal LV segmental wall motion. Normal global strain value at -18.2% There is no pericardial effusion.
--- NOTE | 2024-08-15 17:00 | NUR ---
Discharge 1700 Patient alert and oriented ambulating with assistance in halls. Patient instructed on discharge. Per patient, no questions or concerns at this time. Patient instructed on new medication that was sent to primary pharmacy and confirmed pharmacy. Marty VAZQUEZ escorted patient via wheelchair to personal vehicle.
[2024-08-15] MEDS ORDERED: atorVAStatin 40 MG TABLET PO SCH (21:00)
--- NOTE | 2024-08-15 21:18 | DS ---
[facility] DISCHARGE SUMMARY Date Patient Seen: August 15, 2024 Time of Visit: 21:16 Supervising Physician: Dr. Kristi Hays Primary Care Physician: ELINOR BOYER M.D. (PCP) Outpatient Specialists: Inpatient Consults: HOSPITAL COURSE: HPI (per admitting provider) Ms. Tipton is a 69-year-old female with a history of COPD, CHF, EF 50%, CABG x3, IVC filter who presented to [facility] via EMS from her doctor's office ([facility]) for evaluation of chest pains and shortness of breath. The patient reported three days of dyspnea on exertion and difficulty lying flat. She reported on and off chest pressures but currently none. The patient denied fever, any other pain, problem or concern. The patient's influenza COVID was negative. Cardiac markers negative X4. BNP 115. D-dimer 734. Chest x-ray: Clear lungs. I assess the patient at bedside. The patient appeared weak, but comfortable in no distress. Patient's breathing was even, unlabored. I informed the patient of labs, diagnostics, and plan of care. She verbalized understanding and is in agreement with the plan. Plan and assessment are listed below. The patient was treated for the following problems: Patient's cardiac workup on this admission was negative, however she was found to be and Chronic obstructive pulmonary disease exacerbation. Patient on room air, denies any shortness of breath or further episodes of chest pain. Scans negative for PE. Patient discharged with prescription for Macrobid for incidental UTI as well as low-dose steroids for one week and recommendation to follow up at [facility] for further evaluation of the patient's Chronic obstructive pulmonary disease. ACTIVE PROBLEM LIST FOR THE HOSPITALIZATION: Chest pain with high risk cardiac etiology, negative troponin x3 COPD exacerbation, POA Elevated D-dimer, rule out PE/DVT CHRONIC PROBLEMS: continue previous management per PCP unless otherwise indicated Acute on chronic kidney disease, GFR 60 Elevated BNP 115 Diabetes mellitus with hyperglycemia Hypertension Hypercholesteremia CABG x3 EF 50% IV filter PACU NURSE FINDINGS/RECOMMENDATIONS: [ ] PROCEDURES: as mentioned above DISCHARGE MEDICATIONS: Pt hemodynamically stable and afebrile at time of discharge. PCP notified of patients admission, hospital course and discharge. PHYSICAL EXAM: GENERAL: Alert, weak, awake oriented x 3. HEENT: EOMI, Sclera non icteric, moist mucosa NECK: Supple, no JVD, trachea midline LUNGS: Clear breath sounds bilaterally. No wheezes HEART: Regular rate and rhythm. Normal S1 and S2, without murmurs ABD: Abdomen soft, nontender. Bowel sounds present EXT: No clubbing cyanosis or edema NEURO: Alert and oriented x3, follows commands FOLLOW-UP: Follow-up with PCP in 2-3 days RECOMMENDATIONS: See Discharge Instructions This case was seen and discussed with my supervising physician. More than 30 minutes spent on discharge process, including evaluation of the patient, discussion with nursing staff, medication reconciliation and follow-up appointments TEVIN AHUMADA August 15, 2024 21:18
== END 2024-08-15 17:00 | disposition home or self-care (01) ==
LOC: EDH 14:00 → EDHIP 14:01 → 4AH 22:22
PROVIDERS: ADMIT Internal Medicine Pulmonary Disease; ATTEND Internal Medicine Pulmonary Disease
DX: R07.89 Other chest pain (principal); J44.1 Chronic obstructive pulmonary disease with (acute) exacerbation; I13.0 Hypertensive heart and chronic kidney disease with heart failure and stage 1 through stage 4 chronic kidney disease, or unspecified chronic kidney disease; E11.22 Type 2 diabetes mellitus with diabetic chronic kidney disease; N18.9 Chronic kidney disease, unspecified; I50.9 Heart failure, unspecified; E11.65 Type 2 diabetes mellitus with hyperglycemia; E78.00 Pure hypercholesterolemia, unspecified; R60.0 Localized edema; Z20.822 Contact with and (suspected) exposure to COVID-19; Z79.899 Other long term (current) drug therapy; Z90.710 Acquired absence of both cervix and uterus; Z98.890 Other specified postprocedural states; Z95.1 Presence of aortocoronary bypass graft
CPT/HCPCS: 99285; 82550 ×4; 83735 ×2; 84484 ×4; 80048 ×2; 83880; 85025 ×2; 85378; 85610; 85730; 87804 ×2; 82948 ×3; 87426; 81001; 36415 ×2; 71045; 93005; 83036; 84443; 80076; 84100; 71270; 93306; 93356; 93970; 94640; G0378 ×23; Q9967; 94664

== ENCOUNTER → 2024-12-27 | Outpatient (CLI) | payer OTHER, MEDICARE ==
[~2024-12-27] MED LIST changes: +IOHEXOL 350 MG/ML 100ML INFUS..BTL IV ONE; +PRED10TA23 PO
--- NOTE | 2024-12-30 10:06 | CARDIOLOGY ---
RAD REPORT: [facility] CT ANGIO RADIOLOGY REPORT: CORONARY CT ANGIOGRAPHY DATE: Dec 27, 2024 QUALITY: Excellent CLINICAL HISTORY AND INDICATION: [CABG ] TECHNIQUE: After obtaining a preliminary install technician image, contrast imaging performed on an [employer] [id number] scanner. A dedicated, limited window, coronary imaging protocol was used, with single breath-hold, retrospective ECG gating, and automated arrhythmia rejection. 100 cc of low osmolar contrast agent: Omnipaque 350 was delivered via a 18-gauge IV catheter in the right antecubital fossa, using a power injector and followed by 60 cc of normal saline bolus as a chaser. Collimated images were reformatted at 0.5 mm intervals, and sent to an offline independent workstation for interpretation, using 3D anatomic reconstructions: Curved multiplanar reconstructions, maximum intensity projections, and multiplanar imaging. No metoprolol was administered prior to scanning due to low baseline heart rate. 0.4 mg SL nitroglycerin was given. CORONARY ARTERY DESCRIPTIONS: The coronary arteries arise in normal position. Left main coronary artery: Normal caliber vessel that bifurcates into the LAD and LCx. No stenosis. Left anterior descending coronary artery: Normal caliber vessel and gives rise to diagonal and septal branches. Severe ostial/proximal/mid LAD stenosis. Left circumflex coronary artery: Normal caliber, nondominant and gives rise to a large OM branch. Severe ostial LCx stenosis. Right coronary artery: Large, dominant vessel giving rise to the PL and PDA branches. Severe proximal to mid RCA stenosis. Patent TRAVIS to LAD. Patent SVG to OM2. Patent SVG to RCA. Thoracic Aorta: Normal diameter. Anjana Jose MD Cardiovascular Disease [facility] ANJANA JOSE MD Dec 30, 2024 10:06
== END | disposition home or self-care (01) ==
LOC: RAH 07:44
PROVIDERS: ATTEND Internal Medicine Cardiovascular Disease
DX: I25.10 Atherosclerotic heart disease of native coronary artery without angina pectoris (principal); Z95.1 Presence of aortocoronary bypass graft
CPT/HCPCS: 75574; J3490 ×2; Q9967